=== PATIENT | male | born 1945 | race Caucasian/White ===

== ENCOUNTER → 2020-02-27 12:06 | Outpatient (CLI) | payer MEDICARE, SELFPAY ==
--- NOTE | 2020-02-26 10:48 | IMM_PTH ---
PATIENT: ROME JUAREZ LOC: [facility] U#:[id number] AGE/SX: 79/M ROOM: RE02/27/[address]: Dr. Quentin Crum MD : 1945 BED: DIS: SPEC #: [id number] RECD: 02/27/20 13:28 STATUS: TEJAL REQ #: [id number] FLACA: 02/26/20 10:[address]: Quentin Crum DEPT: IMMUNOHISTOCHEMISTRY RECD BY: Mervat Aguilar ENTERED: 02/27/20 13:29 SP TYPE: IMMUNO OTHR DR: Dr. Antwan Larkin III, MD Tissues: A - Stomach, NOS Procedures: H Pylori (initial) PHYSICIAN & INSTITUTION [place] [address] SPECIMEN INFORMATION: Tissue Source: A - Antral biopsy Clinical Info: Dysphagia, screening Specimen Number: [id number] CPT code: 70687 METHODOLOGY: Deparaffinized sections of prefer/formalin-fixed tissue or PAP/DQ stained slides are incubated with monoclonal/polyclonal antibodies/oligonucleotide probes. Localization is made via biotin free immunoperoxidase method. Appropriate controls are performed and reacted as expected. Results on target cell population are indicated in the following table: RESULTS: ANTIBODY / CLONE RESULT Block A H Pylori (polyclonal) negative These tests were developed and their performance characteristics determined by [facility]. They may not have been cleared or approved by the U.S. Food and Drug Administration. The FDA has determined that such clearance or approval is not necessary. INTERPRETATION: A. Antral biopsy: Negative for Helicobacter pylori organisms. SJ:samira 02/28/20
--- NOTE | 2020-02-27 | GASB_PTH ---
PATIENT: ROME JUAREZ LOC: [facility] U#:[id number] AGE/SX: 79/M ROOM: RE02/27/[address]: Dr. Quentin Crum MD : 1945 BED: DIS: SPEC #: [id number] RECD: 02/27/20 12:31 STATUS: TEJAL REMagnus #: [id number] FLACA: 02/27/20 00:[address]: Quentin Crum DEPT: SURGICAL PATHOLOGY RECD BY: Mat Moscoso ENTERED: 02/27/20 12:33 SP TYPE: Gastric Bx OTHR DR: Dr. Antwan Larkin III, MD Tissues: A - Gastric mucous membrane B - Esophageal mucous membrane C - Esophageal mucous membrane Procedures: Surgery Specimen Level IV HEADER OPERATION: EGD / Colonoscopy PRE-OP DIAGNOSIS: Dysphagia, screening TISSUE SUBMITTED: A - Antral biopsy H/H, B - Distal esophageal biopsy, C - Mid esophageal biopsy MICROSCOPIC DIAGNOSIS A. Antral biopsy: Mild gastritis. See microscopic description and comment. B. Distal esophageal biopsy: A fragment of squamous epithelium with changes consistent with gastroesophageal reflux disease and mild chronic inflammation. C. Mid esophageal biopsy: Fragments of squamous epithelium with mild chronic inflammation. SJ:samira 02/28/20 COMMENT A. The results of immunohistochemistry for Helicobacter pylori will be reported separately ([id number]). MICROSCOPIC DESCRIPTION Slides are reviewed. A. The specimen shows fragments of gastric mucosa with chronic inflammatory cell infiltrates in the lamina propria consisting of lymphocytes and plasma cells, consistent with mild chronic gastritis. GROSS DESCRIPTION A - Received in fixative is one container labeled with the patient's name and designated antral biopsy. The specimen consists of one irregular fragment of light lizarraga soft tissue that measures 0.3 x 0.3 x 0.1 cm. The specimen is totally submitted in one cassette. B - Received in fixative is one container labeled with the patient's name and designated distal esophageal biopsy. The specimen consists of one irregular fragment of light lizarraga soft tissue that measures 0.6 x 0.3 x 0.1 cm. The specimen is totally submitted in one cassette. C - Received in fixative is one container labeled with the patient's name and designated mid esophageal biopsy. The specimen consists of two irregular fragments of light lizarraga soft tissue that in aggregate measure 0.4 x 0.4 x 0.1 cm. The specimen is totally submitted in one cassette. / SJ:rg 02/27/20 TC:3 CPT: 27114 x3
== END ==
PROVIDERS: PCP Family Medicine; Visit Provider Surgery
DX: R89.7 Abnormal histological findings in specimens from other organs, systems and tissues (principal)
CPT/HCPCS: 88305; 88342

== ENCOUNTER → 2020-08-29 15:06 | Outpatient (CLI) | payer MEDICARE, SELFPAY ==
[2020-08-29 15:35] LABS: Magnesium 2.2 mg/dL (1.6-2.6)
== END ==
PROVIDERS: PCP Family Medicine
DX: R19.7 Diarrhea, unspecified (principal)
CPT/HCPCS: 83735

== ENCOUNTER → 2020-11-05 13:08 | Outpatient (CLI) | payer MEDICARE, SELFPAY ==
--- NOTE | 2020-11-04 14:15 | IMM_PTH ---
PATIENT: ROME JUAREZ LOC: [facility] U#:[id number] AGE/SX: 79/M ROOM: RE11/05/[address]: Dr. Quentin Crum MD : 1945 BED: DIS: SPEC #: [id number] RECD: 11/05/20 13:43 STATUS: TEJAL REMagnus #: [id number] FLACA: 11/04/20 14:[address]: Quentin Crum DEPT: IMMUNOHISTOCHEMISTRY RECD BY: Mervat Aguilar Tissues: A - Stomach, NOS Procedures: H Pylori (initial) PHYSICIAN & INSTITUTION [place] [address] SPECIMEN INFORMATION: Tissue Source: A ? Antral biopsy Clinical Info: Diarrhea, bloating Specimen Number: [id number] CPT code: 58558 METHODOLOGY: Deparaffinized sections of prefer/formalin-fixed tissue or PAP/DQ stained slides are incubated with monoclonal/polyclonal antibodies/oligonucleotide probes. Localization is made via biotin free immunoperoxidase method. Appropriate controls are performed and reacted as expected. Results on target cell population are indicated in the following table: RESULTS: ANTIBODY / CLONE RESULT Block A H Pylori (polyclonal) negative These tests were developed and their performance characteristics determined by [facility]. They may not have been cleared or approved by the U.S. Food and Drug Administration. The FDA has determined that such clearance or approval is not necessary. INTERPRETATION: A. Antral biopsy: Negative for Helicobacter pylori organisms. AM:samira 11/07/2020
--- NOTE | 2020-11-05 | GASB_PTH ---
PATIENT: ROME JUAREZ LOC: [facility] #:[id number] AGE/SX: 79/M ROOM: RE11/05/[address]: Dr. Quentin Crum MD : 1945 BED: DIS: SPEC #: [id number] RECD: 11/05/20 13:17 STATUS: TEJAL [place] #: [id number] FLACA: 11/05/20 00:[address]: Quentin Crum DEPT: SURGICAL PATHOLOGY RECD BY: Mat Moscoso Tissues: A - Gastric mucous membrane B - Esophageal mucous membrane C - Esophageal mucous membrane D - Ileum, NOS E - COLON BIOPSY Procedures: Trichrome (control) Special Stain Group II Surgery Specimen Level IV Alcian Blue/PAS (control) HEADER OPERATION: EGD/colonoscopy PRE-OP DIAGNOSIS: Diarrhea, bloating TISSUE SUBMITTED: A ? Antral biopsy H/H, B ? Distal esophageal biopsy, C ? Mid esophageal biopsy, D ? Terminal ileum biopsy, E ? Random colon biopsy MICROSCOPIC DIAGNOSIS A. Gastric antrum, biopsy: Chronic gastritis, moderately severe. See comment. B. Distal esophagus, biopsy: Focal changes of reflux. Gastroesophageal junctional mucosa with mild chronic inflammation. No evidence of goblet cell metaplasia. See comment. C. Mid esophagus, biopsy: Fragment of benign squamous mucosa. No evidence of inflammation. D. Terminal ileum, biopsy: No pathologic change. E. Colon, random biopsy: Suggestive of collagenous colitis. See comment. AM:samira 11/06/2020 COMMENT A. The results of immunohistochemistry for Helicobacter pylori will be reported separately ([id number]). B. Alcian blue/PAS stain with matched control supports the above diagnosis. E. Trichrome stain with matched control was used in the evaluation of this case. MICROSCOPIC DESCRIPTION Slides are reviewed. GROSS DESCRIPTION A - Received in fixative is one container labeled with the patient's name and designated antral biopsy. The specimen consists of one irregular fragment of light lizarraga soft tissue that measures 0.4 x 0.4 x 0.1 cm. The specimen is totally submitted in one cassette. B - Received in fixative is one container labeled with the patient's name and designated distal esophageal biopsy. The specimen consists of one irregular fragment of light lizarraga soft tissue that measures 0.4 x 0.2 x 0.1 cm. The specimen is totally submitted in one cassette. C - Received in fixative is one container labeled with the patient's name and designated mid esophageal biopsy. The specimen consists of one irregular fragment of light lizarraga soft tissue that measures 0.5 x 0.3 x 0.1 cm. The specimen is totally submitted in one cassette. D - Received in fixative is one container labeled with the patient's name and designated terminal ileum biopsy. The specimen consists of two irregular fragments of light lizarraga soft tissue that in aggregate measure 0.5 x 0.2 x 0.1 cm. The specimen is totally submitted in one cassette. E - Received in fixative is one container labeled with the patient's name and designated random colon biopsy. The specimen consists of two irregular fragments of light lizarraga soft tissue that in aggregate measure 0.6 x 0.4 x 0.1 cm. The specimen is totally submitted in one cassette. / SJ:samira 11/05/20 TC:3 CPT: 59056 x5, 33972 x2
== END ==
PROVIDERS: Visit Provider Surgery
DX: R19.7 Diarrhea, unspecified (principal); R14.0 Abdominal distension (gaseous)
CPT/HCPCS: 88305; 88313; 88342

== ENCOUNTER → 2022-02-12 | Outpatient (CLI) | payer BC, SELFPAY ==
--- NOTE | 2022-02-12 09:04 | RAD_ITS ---
STUDY: X-RAY - ESOPHAGUS (BARIUM SWALLOW) WITH FLUOROSCOPY REASON FOR EXAM: Male, 76 years old. DYSPHAGIA TECHNIQUE: 27 view(s) of the esophagus were obtained following swallowing of barium. FLUOROSCOPY TIME (if supplied): (1 minute and 16 seconds) minutes/seconds COMPARISON: None. FINDINGS: There is no demonstrated esophageal foreign body. There is evidence of a 3.5 mm Zenker''s diverticulum. Normal gastroesophageal junction, without a demonstrated hiatal hernia. The patient ingested a 12 mm tablet of barium. The tablet is trapped at the gastroesophageal junction. There is atherosclerotic calcification of the aortic arch with tortuosity of the descending aorta. Normal visualized pulmonary parenchyma. Normal visualized osseous structures of the thorax. RAD/Esophagus Dual Contrast IMPRESSION: There is a 3.5 mm Zenker''s diverticulum. The ingested 12 mm tablet of barium is trapped at the gastroesophageal junction. Electronically Signed: Jaleel Cole MD at 11:13 EDT ,
== END | disposition home or self-care (01) ==
PROVIDERS: PCP Family Medicine; Referring Provider Internal Medicine Gastroenterology; Visit Provider Internal Medicine Gastroenterology
DX: R13.10 Dysphagia, unspecified (principal)
CPT/HCPCS: 74221

== ENCOUNTER → 2024-03-30 | Outpatient (CLI) | payer BC, SELFPAY ==
--- NOTE | 2024-03-30 08:05 | RAD_ITS ---
STUDY: X-RAY - ESOPHAGUS (BARIUM SWALLOW) WITH FLUOROSCOPY REASON FOR EXAM: Male, 78 years old. DYSPHAGIA. Prior stretching of the cricopharyngeus muscle. TECHNIQUE: 53 fluoroscopic view(s) of the esophagus were obtained following swallowing of barium. FLUOROSCOPY TIME (if supplied): (1 minute and 47 seconds) minutes/seconds. 8.06 mGy. COMPARISON: Comparison is made with prior study February 12, 2022. FINDINGS: There is no demonstrated esophageal foreign body. There is evidence of a 1.2 cm Zenker''s diverticulum. Normal gastroesophageal junction, without a demonstrated hiatal hernia. The patient ingested a 12 mm tablet of barium. The tablet is trapped at the gastroesophageal junction. There is atherosclerotic calcification of the aortic arch with tortuosity of the descending aorta. Normal visualized pulmonary parenchyma. There are degenerative changes of the visualized thoracic spine. RAD/Esophagus Dual Contrast IMPRESSION: Findings suggestive of a 1.2 cm Zenker''s diverticulum. The patient ingested a 12 mm tablet of barium. The tablet distracted at the gastroesophageal junction. Electronically Signed: Jaleel Cole MD at 8:49 EST ,
== END | disposition home or self-care (01) ==
PROVIDERS: PCP Family Medicine; Referring Provider Otolaryngology; Visit Provider Otolaryngology
DX: F45.8 Other somatoform disorders (principal); K22.5 Diverticulum of esophagus, acquired
CPT/HCPCS: 74221